=== PATIENT | female | born 1985 | race Caucasian/White ===

== ENCOUNTER 2019-04-30 21:49 | Emergency (ER) | payer SELFPAY ==
[~2019-04-30] VITALS: Ht 170.2 cm; Wt 65.9 kg
[2019-04-30 21:59] VITALS: BP 137/91
== END 2019-05-01 01:06 | disposition left against medical advice (07) ==
LOC: ER 21:56
DX: M54.5 Low back pain (principal); R10.9 Unspecified abdominal pain; Z53.21 Procedure and treatment not carried out due to patient leaving prior to being seen by health care provider; V43.52XA Car driver injured in collision with other type car in traffic accident, initial encounter; Y93.89 Activity, other specified; Y99.8 Other external cause status; Y92.410 Unspecified street and highway as the place of occurrence of the external cause
CPT/HCPCS: 72100; 81025